=== PATIENT | male | born 1945 | race Caucasian/White ===

== ENCOUNTER 2017-02-10 09:50 | Inpatient (IN) | payer MEDICARE, OTHER ==
--- NOTE | 2017-02-10 12:49 | HP ---
HISTORY OF PRESENT ILLNESS: This 71-year-old, white male was admitted as a direct admit from Dr. Magallanes's office. 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 Yesterday, he noted onset of significant left lower extremity edema, swelling, and tenderness, especially upon weight-bearing. He was working on the seat of an excavator about 10 days ago and had tingling in the toes of his left foot at that time. No previous history of swollen extremities in the past. No shortness of breath, chest pain, no hemoptysis, no GI bleeding. No specific injuries to his extremities have been noted. In the outpatient department, Dr. Magallanes did a DVT ultrasound exam which showed a massive, extensive clot formation within the left lower extremity throughout most of the venous system of the leg. He is admitted to the hospital for heparinization with a heparin infusion per suggestion and recommendation of Dr. Conde, chiller hand. Eventually, he will go on Eliquis after the heparin infusion has been completed after 2 to 3 days. PAST MEDICAL HISTORY: 1. Hypertension. PAST SURGICAL HISTORY: 1. Appendectomy at age 9 years. CURRENT MEDICATIONS: Please refer to list of verified home medicines. ALLERGIES: NONE. FAMILY HISTORY: Father with renal failure in his 60s related to poorly controlled hypertension. SOCIAL HISTORY: He has worked in the [employer] for many years. He does not smoke. REVIEW OF SYSTEMS: GENERAL: No significant weight change, fever or chills. HEENT: No hearing or visual disturbances. LUNGS: No significant shortness of breath or cough. No hemoptysis. CARDIOVASCULAR: No significant palpitations or chest pains. GASTROINTESTINAL: No nausea or vomiting. No diarrhea or blood in the stools. GENITOURINARY: No dysuria or burning on urination. EXTREMITIES: History of sciatica on the left especially and now with swelling on the left lower extremity. NEUROLOGIC: No significant headaches or focal weakness. PHYSICAL EXAMINATION: VITAL SIGNS: Afebrile. Blood pressure 126/76. Pulse oximetry 95% on room air. Weight 97.8 kg. GENERAL: The patient is awake, alert and oriented and full communicative. No acute distress, but a tightness and achiness throughout the left lower extremity when weight-bearing. HEENT: Within normal limits. LUNGS: Clear. CARDIOVASCULAR: Heart tones are regular. ABDOMEN: Distended with lower abdominal fullness versus mass. Possible bladder distension. EXTREMITIES: Significant edema, quite firm in palpation with mild discomfort and slightly increased temperature on the left lower extremity compared to the right. Peripheral pulses are present. NEUROLOGIC: No focal neurological deficits are noted. Negative Homans test evident on exam. LABORATORY: Pending. RADIOLOGY: Ultrasound of the lower extremity on the left did reveal an extensive deep venous thrombus in the venous system. ASSESSMENT: 1. Acute extensive widespread deep venous thrombosis, left lower extremity, symptomatic. 2. Chronic sciatica, especially left lower extremity. 3. History of hypertension. 4. Abdominal mass PLAN: The patient is admitted to the hospital for initiation of heparin bolus followed by heparin infusion and after the completion of the heparin for at least 2 to 3 days, then continuation as an outpatient on Eliquis per protocol. He will be followed closely for his partial thromboplastin time and heparin dose to be adjusted accordingly. He will have close followup with Dr. Magallanes in the clinic and with Dr. Conde in the cardiology clinic. Await CT Abdominal exam. #[id number] [facility]
[2017-02-10] MEDS ORDERED: HEPARIN SODIUM (PORCINE) 5,000 U/ML VIAL IV ONE (13:41)
[2017-02-10] MEDS ORDERED: HEPARIN IV SCH (13:45)
[2017-02-10] MEDS ORDERED: SODIUM CHLORIDE 0.9% (FLUSH) 10 ML SYG IV PRN (14:05)
[2017-02-10] MEDS ORDERED: HYDROcodone 5MG/APAP 325MG 1 EA TAB PO PRN (14:05)
[2017-02-10] MEDS ORDERED: ONDANSETRON INJ 4 MG/2 ML VIAL IV PRN (14:05)
[2017-02-10] MEDS ORDERED: MAGNESIUM HYDROXIDE 30 ML UD PO PRN (14:05)
--- NOTE | 2017-02-10 14:26 | US ---
EXAM DESCRIPTION: Venous,Lower Extremity LT CLINICAL HISTORY: PAIN IN LEFT LEG COMPARISON: None Available. TECHNIQUE: Left lower extremity venous grayscale, spectral, and color Doppler sonographic images. FINDINGS: There is extensive mostly occlusive deep venous thrombosis extending from the common femoral into the superficial femoral vein. Partially occluding thrombosis of the distal superficial femoral and popliteal veins. Thrombus extends into the greater saphenous and peroneal veins. No evidence of thrombus in the posterior tibial vein. IMPRESSION: Extensive deep venous thrombosis in the left lower extremity venous system as described above. The findings were called to Dr. Monico Magallanes on 02/10/2017 at 1210 hours. Electronically signed by: Nash Fermin MD 02/10/2017 2:26 PM CDT
[2017-02-10] MEDS ORDERED: IV SET AND CAP CHANGE INJ INJ SCH (14:30)
--- NOTE | 2017-02-10 14:30 | RAD ---
EXAM DESCRIPTION: Chest,1 View CLINICAL HISTORY: 71 years, Male, DVT left leg COMPARISON: None. FINDINGS: Slightly shallow inspiration. Mild elevation right hemidiaphragm. No consolidation. Cardiac silhouette borderline. Old right clavicular fracture. IMPRESSION: Mild chronic lung change with borderline heart size Electronically signed by: Flex Alcazar MD 02/10/2017 2:30 PM CDT
[2017-02-10] MEDS: KCL 20 MEQ/NS 1,000 ML IVS PRN (14:33)
--- NOTE | 2017-02-10 15:09 | CT ---
EXAM DESCRIPTION: Abdoment/Pelvis w/o Contrast CLINICAL HISTORY: extensive DVT left LE COMPARISON: None. TECHNIQUE: Noncontrast transaxial CT images of the abdomen and pelvis are obtained. This exam was performed according to our departmental dose-optimization program, which includes automated exposure control, adjustment of the mA and/or kV according to patient size and/or use of iterative reconstruction technique . FINDINGS: Visualized lung bases show no acute findings. Probable chronic pleural thickening or scarring in the lung base is seen associated with remote healed rib fractures. The heart is mildly enlarged. Trace pericardial effusion is seen. Given the limitations of a noncontrast exam the liver, spleen, pancreas, glands, and mildly contracted gallbladder are seen. Dominant vasculature is unremarkable. There is severe distention of the urinary bladder measuring 17.7 x 15.0 x 23.3 cm. There are areas of trabeculations involving the dome of the urinary bladder as well as small diverticuli. Prostate is mildly enlarged measuring 4.1 x 4.9 cm partly extending into the floor the urinary bladder. Moderate right and mild left hydronephrosis is seen. AP diameter of the renal pelvis measures 3.9 cm on the right and 2.3 cm on the left. No significant nephrolithiasis. No ureteral calcification. Ureters appear obstructed secondary to bladder distention compressing the ureters. There is compression of the common iliac vein from the right common iliac artery and pressure from the urinary bladder. No pathologic lymphadenopathy seen. Appendix is unremarkable. No small bowel obstruction is seen. No significant colon diverticulosis. Osseous structures show no aggressive bony lesions. Severe disc space narrowing and vacuum disc phenomenon from L2 through S1 is seen with multilevel facet arthropathy contributing to multilevel spinal canal stenosis and foraminal encroachment from L2 through S1. Bony hypertrophy and degenerative changes of the SI joints are seen. IMPRESSION: Severe distention of the urinary bladder. This is likely chronic given the bladder trabeculations and diverticula. This could be secondary to chronic bladder outlet obstruction and enlarged prostate versus neurogenic bladder. Moderate right and mild left hydronephrosis appears secondary to compression of the mid to distal ureters by the distended urinary bladder. The distended urinary bladder could also result in compression of the left common iliac vein and be the etiology for left lower extremity DVT. Severe spondylitic changes and facet arthropathy of the lumbar spine as described above. Electronically signed by: Nikolas Sanches MD 02/10/2017 3:08 PM CDT
[2017-02-10] MEDS ORDERED: HEPARIN IV PRN (16:30)
--- NOTE | 2017-02-10 16:59 | US ---
EXAM DESCRIPTION: Venous Doppler sonogram right lower extremity CLINICAL HISTORY: Extensive deep vein thrombosis left lower extremity previously seen. Right lower extremity pain and swelling COMPARISON: Previous sonogram from 02/10/2017 left lower extremity TECHNIQUE: Venous Doppler right lower extremity deep venous system from the common femoral vein to the calf veins FINDINGS: Normal venous flow with color Doppler. Normal compressibility. Normal augmentation of flow with compression maneuvers IMPRESSION: No deep vein thrombosis right lower extremity Electronically signed by: Martin Edmond MD 02/10/2017 4:46 PM CDT
[2017-02-10] MEDS ORDERED: ENOXAPARIN SODIUM 100 MG/ML SYG SUBCU ONE (17:06)
[2017-02-10] MEDS: ENOXAPARIN SODIUM 100 MG/ML SYG SUBCU SCH (17:19)
--- NOTE | 2017-02-10 18:58 | PN ---
DATE: 02/10/17 SUBJECTIVE: The patient will be switched from heparin infusion to Lovenox to assist with the further resolution of a significant iliofemoral DVT, left lower extremity. We are unable to adequately provide PTT determinations to assist with the ongoing tapering of the heparin infusion. Condition is discussed with Dr. Conde who is in full agreement and we will continue. Of importance is that he is on Lovenox 100 mg subcutaneously q.12h. On the last dose on the Lovenox on the day prior to discharge in the evening, the first dose of Eliquis is to be given, then on the morning of discharge, the Eliquis by itself can be administered and continued on a twice daily dosage schedule per protocol. OBJECTIVE: The patient has had problems with bladder outlet in the past for which she takes medications to help relax the sphincter. CT scan of the abdomen shows an extremely enlarged bladder. At this time, he has passed about 250 mL of urine and a Glaser catheter will be passed so that residual bladder volume can be determined. The patient does have some bilateral hydronephrosis and hydroureter also suggesting some sequelae and complications of the bladder outlet obstruction. Whether or not the markedly distended and heavy bladder full of urine is compressing upon one of the veins and whether it may be contributing to the DVT by compression on the left common iliac vein must be considered. PLAN: Glaser catheter to decompress the bladder. Hope to be able to have followup with Dr. Mcmahon, urologist, tomorrow in the [facility]. We will continue with the heparin for at least 2 to 3 days, followed by the [facility] on an outpatient basis and close followup with Dr. Magallanes necessary. Special attention at this time to the significant bladder outlet obstruction to continue. #[id number] [facility]
[2017-02-10] MEDS ORDERED: OMEPRAZOLE CAP 20 MG CAP ONE (20:35)
[2017-02-11] MEDS: ENOXAPARIN SODIUM 100 MG/ML SYG SUBCU SCH ×2 (05:06→17:00)
[2017-02-11] MEDS: OMEPRAZOLE CAP 20 MG CAP PO SCH (06:04)
--- NOTE | 2017-02-11 08:06 | PN ---
DATE: 02/10/17 OBJECTIVE: Catheterization was inserted without difficulty into the bladder. Post void, over 3,000 mL of urine removed in stages. Well tolerated with the patient feeling much improved upon completion of the bladder drainage. Close followup necessary now with Dr. Mcmahon, urologist, to assist with further delineation and treatment of a significant bladder outlet obstruction. #[id number] [facility]
[2017-02-11] MEDS ORDERED: ATENOLOL PO SCH (14:45)
[2017-02-11] MEDS ORDERED: CHLORTHALIDONE PO SCH (14:45)
[2017-02-11] MEDS ORDERED: [UNRECOGNIZED DRUG - OTHER] PO SCH (14:45)
[2017-02-11] MEDS ORDERED: TERAZOSIN 5 MG CAP PO ONE (14:57)
[2017-02-11] MEDS: CHLORTHALIDONE 25 MG TAB PO SCH (15:12)
[2017-02-11] MEDS: TERAZOSIN 5 MG CAP PO SCH (15:12)
[2017-02-11] MEDS: KCL 20 MEQ/NS 1,000 ML IVS PRN (15:13)
[2017-02-11] MEDS ORDERED: ATENOLOL 25 MG TAB PO ONE (15:13)
[2017-02-11] MEDS: ATENOLOL 25 MG TAB PO SCH (15:13)
[2017-02-11] MEDS ORDERED: CHLORTHALIDONE 25 MG TAB PO ONE (15:13)
--- NOTE | 2017-02-11 16:30 | CONS ---
HISTORY OF PRESENT ILLNESS: Mr. Weller is a 71 year-old white male admitted to the hospital with a left DVT. He has had left leg swelling and is now on anticoagulation. He had complained of abdominal fullness and difficulty urinating for some time. A CT scan of the abdomen and pelvis was obtained suggesting bilateral hydroureter nephrosis with a markedly distended bladder above his umbilicus. He subsequently has had a Glaser catheter placed and is now draining clear urine. The patient gives a long history of some mild obstructive voiding symptoms going back into his early 20s. He has been on Terazosin for some time. He had noticed that his abdominal girth was getting larger over the last many weeks but had really noted a big change in his urine flow. Once again, what brought him to the hospital was the left leg swelling. The patient has had a history of some back problems. Apparently ;he has sciatica , has had his back scanned before. He does have some occasional right lower extremity pain and numbness. REVIEW OF CHART NOTES ALONG WITH LABORATORY STUDIES: The patient's creatinine is in the normal range at 1.17 with a BUN of 20. IMPRESSION: 1. 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 2. Chronic history of slowing his urine stream. 3. Left lower extremity DVT. RECOMMENDATIONS: For now, I suggest we continue him on Glaser catheter drainage. Obviously because of his DVT, we will need to continue his anticoagulation. As soon as he is released from his hospitalization though, I would like to see him in my office in [place] for a cystoscopy to further evaluate his lower urinary tract. Thanks for allowing me to participate in his care. #[id number] [facility]
[2017-02-11] MEDS ORDERED: SIMVASTATIN 10 MG TAB PO ONE (19:57)
[2017-02-11] MEDS: SIMVASTATIN 10 MG TAB PO SCH (20:25)
--- NOTE | 2017-02-11 21:09 | PN ---
DATE: 02/11/17 SUPERVISING PHYSICIAN: Benja Atkinson M.D. SUBJECTIVE: The patient is sitting up in his hospital bed. He is visiting with family and eating his lunch. He has no complaints of shortness of breath, nausea, vomiting or back pain. He does complain of some slight pain to that left leg but it is not nearly as bad as it was before the catheter was placed. OBJECTIVE: VITAL SIGNS: He is afebrile, heart rate 71, blood pressure 154/80, respiratory rate 20, O2 sat is 95% on room air. RESPIRATORY: Clear to auscultation bilaterally. CARDIAC: Regular rate and rhythm. ABDOMEN: Soft, nondistended, nontender. Bowel sounds are positive. NEUROLOGIC: He is awake, alert and oriented times three. EXTREMITIES: His left leg still continues to be quite edematous, but the patient states it is smaller than yesterday. His bilateral pedal pulses are present at +1. LABORATORY: His CBC is basically within normal limits. Chemistries are basically within normal limits with the exception of his anion gap is 9.6, BUN 20, calcium 8.3. All other labs and films have been reviewed via the EMR. ASSESSMENT: 1. Acute extensive, wide-spread deep vein thrombosis of the left lower extremity. 2. Chronic sciatica, especially to the left lower extremity that has improved. 3. 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 4. Hypertension. 5. History of urinary retention. PLAN: We will continue present supportive care. Dr. Mcmahon saw the patient today and recommended that the Glaser catheter be left in place until he can scope him next week. He asked that Dr. Magallanes's office call his office to set up an appointment for the patient next Thursday and I have called Dr. Magallanse' s office, and his nurse, Cassidy, has said that she will make the appointment for him. He will have his fourth dose of Lovenox in the morning. We will discontinue the Lovenox after his fourth dose and start him on Eliquis 5 mg b.i.d. at the time of his last dose of Lovenox. Hopefully he will be able to be discharge tomorrow or the next day with close followup with Dr. Magallanes as well as Dr. Mcmahon. Dr. Magallanes has also said that he will have him referred to Dr. Conde at some point. Otherwise we will continue to monitor the patient closely and followup as needed. #[id number] [facility]
[2017-02-12] MEDS: ENOXAPARIN SODIUM 100 MG/ML SYG SUBCU SCH (04:47)
[2017-02-12] MEDS: OMEPRAZOLE CAP 20 MG CAP PO SCH (06:35)
[2017-02-12] MEDS: APIXABAN 2.5 MG TAB PO SCH ×3 (06:35→21:26)
[2017-02-12] MEDS: POTASSIUM CHLORIDE 20 MEQ TAB PO SCH (07:47)
[2017-02-12] MEDS ORDERED: NON-FORMULARY MEDICATION 1 EA MIS (Lovastatin [Lovastatin] 20 MG) PO SCH (09:00)
[2017-02-12] MEDS: CHLORTHALIDONE 25 MG TAB PO SCH (09:16)
[2017-02-12] MEDS: ATENOLOL 25 MG TAB PO SCH (09:16)
[2017-02-12] MEDS: TERAZOSIN 5 MG CAP PO SCH (09:16)
[2017-02-12] MEDS: SODIUM CHLORIDE 0.9% (FLUSH) 10 ML SYG IV SCH ×2 (09:17→21:26)
[2017-02-12] MEDS ORDERED: POTASSIUM CHLORIDE 20 MEQ TAB PO ONE (09:27)
--- NOTE | 2017-02-12 20:55 | PN ---
DATE: 02/12/17 SUPERVISING PHYSICIAN: Benja Atkinson M.D. SUBJECTIVE: The patient is lying in his hospital bed. He is getting ready to take a shower. He denies any shortness of breath, nausea or vomiting, chest pain, diarrhea or constipation. He also feels like the pain in his leg as well as his lower back are much improved and he feels much better overall. OBJECTIVE: VITAL SIGNS: Temperature 98.4, pulse rate 76, blood pressure 136/73 , respiratory rate 20, O2 sat is 97%. RESPIRATORY: Clear to auscultation bilaterally. CARDIAC: Regular rate and rhythm. ABDOMEN: Soft, nondistended, non-tender. Bowel sounds are positive. EXTREMITIES: The left leg is edematous from the groin down to the foot, but it is much improved since yesterday. His pedal pulses are palpable bilaterally at +1. NEUROLOGIC: He is awake, alert and oriented times three. LABORATORY: CBC is basically within normal limits. Metabolic panel shows sodium 138, potassium 3.3, chloride 105, carbon dioxide 28, BUN 16, creatinine 1.13, glucose 101, calcium 8.1. All other labs and films have been reviewed via the EMR. ASSESSMENT: 1. Acute extensive wide-spread deep venous thrombosis of the left lower extremity presently on Eliquis. 2. Chronic sciatica, especially to the left lower extremity that has improved. 3. 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 4. Mild hypokalemia. His potassium supplements have been restarted. 5. Hypertension. 6. History of urinary retention. PLAN: We will continue present supportive care. His last dose of Lovenox was this morning and his Eliquis was started. He is getting up and will be moving around as much as possible over the next 24 hours. His potassium was restarted and I will do a BMP in the morning. He will continue on the Eliquis and if he continues to improve overnight, he will be discharged in the morning with close followup with Dr. Magallanes on Thursday and Dr. Mcmahon on Thursday of next week. At this point, we will continue to monitor the patient closely and followup as needed. Dr. Atkinson is the collaborating physician available for consultation. #[id number] [facility]
[2017-02-12] MEDS: SIMVASTATIN 10 MG TAB PO SCH (21:26)
[2017-02-13] MEDS: OMEPRAZOLE CAP 20 MG CAP PO SCH (06:19)
[2017-02-13] MEDS: POTASSIUM CHLORIDE 20 MEQ TAB PO SCH (07:45)
[2017-02-13] MEDS: APIXABAN 2.5 MG TAB PO SCH (09:12)
[2017-02-13] MEDS: ATENOLOL 25 MG TAB PO SCH (09:12)
[2017-02-13] MEDS: CHLORTHALIDONE 25 MG TAB PO SCH (09:12)
[2017-02-13] MEDS: SODIUM CHLORIDE 0.9% (FLUSH) 10 ML SYG IV SCH (09:13)
[2017-02-13] MEDS: TERAZOSIN 5 MG CAP PO SCH (09:15)
[2017-02-13] MEDS ORDERED: POTASSIUM CHLORIDE 20 MEQ TAB PO ONE (10:10)
[2017-02-13] MEDS ORDERED: MAGNESIUM HYDROXIDE 30 ML UD PO ONE (10:20)
[2017-02-13 11:13] VITALS: BP 115/76; TEMP 98.3; O2SAT 97
--- NOTE | 2017-02-13 13:33 | DS ---
SUPERVISING PHYSICIAN: Solange Zabala MD DISCHARGE DIAGNOSIS: 1. Acute extensive widespread deep venous thrombosis of the left lower extremity, presently on Eliquis. 2. 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 3. Chronic sciatica, especially to the left lower extremity, improved. 4. Mild hypokalemia. 5. Hypertension. 6. History of urinary retention. HISTORY OF PRESENT ILLNESS: This is a 71-year-old male patient who was seen in his primary care physician's office, Dr. Magallanes, for some left leg pain and swelling. 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 He has no previous history of deep venous thrombosis or swollen extremities in the past. He had no shortness of breath, chest pain, hemoptysis or GI bled. There were no injuries noted. He came to Dr. Magallanes's office. A DVT ultrasound was performed that showed a massive extensive clot formation from within the left lower extremity through most of the venous structures of the leg. He was admitted to the hospital for treatment of the clot. Dr. Magallanes called Dr. Conde who recommended that he be started on 2 days of Lovenox and then transitioned to Eliquis. It is also to be noted that he had a large abdominal mass that was evaluated. An abdominopelvic CT was done and per radiologic interpretation showed severe distention of the urinary bladder that was likely chronic given the bladder trabeculation and diverticula, could be secondary to chronic bladder outlet obstruction and large prostate versus neurogenic bladder. The distended urinary bladder could also result in compression of the left common iliac vein and may be the etiology for the left lower extremity deep venous thrombosis. A Glaser catheter was placed and there was about 3000 mL of urine returned. Dr. Mcmahon was consulted and after examination, he also felt that the urinary retention was due to the bilateral hydroureteronephrosis and he suggested that we leave his Glaser catheter in place and he could have a followup appointment next week after he was treated for his DVT. He was started on Eliquis yesterday. The swelling in his leg has decreased dramatically. He also has had minimal to no pain in that left leg. At this point, he can be discharged home on Eliquis. DISCHARGE PLAN: The patient will be discharged home. He will continue Eliquis 5 mg b.i.d. I have instructed the patient to watch for signs and symptoms of increased bleeding and to minimize his activity over the next couple of weeks until he talks to Dr. Magallanes, Dr. Mcmahon, and Dr. Conde. He also has some concerns about some mild constipation. I recommended that he use Milk of Magnesia. We gave him a dose here in the hospital and he is to continue for 2 more doses over the next 2 days. I also recommended that he be on Colace. He has an appointment with Dr. Magallanes on Thursday and he has an appointment with Dr. Mcmahon on Thursday. He is to call Dr. Magallanes's office or return to the hospital for any complications. Dr. Magallanes will have followup with Dr. Conde at some point. He will be discharged home in stable condition. He is to resume his previous diet. He is to remain active, but nothing strenuous over the next 2 weeks until cleared by his physicians. DISCHARGE MEDICATIONS: 1. Hytrin. 2. Potassium chloride. 3. Lovastatin. 4. Atenolol chlorthalidone. 5. Eliquis. 6. Colace. Dr. Zabala is the collaborating physician and available for consultation. #[id number] [facility]
== END 2017-02-13 12:00 | disposition home or self-care (01) | DRG 300 ==
LOC: GMAH 09:50 → MS 12:30
PROVIDERS: ADMIT Emergency Medicine; ATTEND Emergency Medicine
DX: I82.412 Acute embolism and thrombosis of left femoral vein (principal); N13.30 Unspecified hydronephrosis; M54.32 Sciatica, left side; E87.6 Hypokalemia; R33.9 Retention of urine, unspecified; N32.0 Bladder-neck obstruction; I10 Essential (primary) hypertension; Z79.899 Other long term (current) drug therapy

== ENCOUNTER 2017-02-25 11:00 | Inpatient (IN) | payer MEDICARE, OTHER ==
--- NOTE | 2017-02-25 11:29 | HP ---
SUPERVISING PHYSICIAN: Martin Zabala MD CHIEF COMPLAINT: Fever HISTORY OF PRESENT ILLNESS: This is a 71-year-old male patient who presented to his primary care physician's office, Dr. Magallanes, today due to fever and chills. The patient had been in the hospital around 02/10/17 due to an acute, extensive, widespread deep venous thrombosis of the left lower extremity, most likely due to a marked urinary retention because of bilateral hydroureter nephrosis. He was in the hospital for several days, placed on Eliquis, and discharged home with an indwelling Glaser catheter. He has seen Dr. Paul Mcmahon, urologist in [place], and a week ago, he was in Dr. Mcmahon's office, the catheter was removed and the patient had to do self-catheterization. He was unable to get disposable catheters before he ran out, so he was re-using each catheter approximately 4 times daily. He then went to see Dr. Mcmahon yesterday to see if he was able to void on his own and he was unable to do so, so Dr. Mcmahon had him continue his self-catheterization. Last night, he started having chills and fever. His temperature got up to 102.3. He also had severe chills. He went to see Dr. Magallanes this morning. Dr. Magallanes did a lab workup on him and his WBCs were 29.5, potassium 3, chloride 99, BUN 18, creatinine 1.42, and a significant urinary tract infection with 100 urine protein, moderate urine blood, positive urine nitrites, trace leukocyte esterase, 20 to 30 urine RBCs, greater than 50 urine WBCs and 4+ urine bacteria. I was called for admission to the hospital. PAST MEDICAL HISTORY: 1. Hypertension. 2. Urinary retention. PAST SURGICAL HISTORY: 1. Appendectomy at age 9. CURRENT MEDICATIONS: Per the EMR and awaiting verification. ALLERGIES: NO KNOWN DRUG ALLERGIES. SOCIAL HISTORY: He is . 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 He denies any tobacco, ETOH, or illicit drug use. REVIEW OF SYSTEMS: GENERAL: Positive for fever and chills. Denies any weight changes. HEENT: Denies sinus symptoms, ear pain, vision changes or sore throat. RESPIRATORY: Denies wheezing, coughing or shortness of breath. CARDIAC: Denies chest pain, palpitations or tachycardia. GASTROINTESTINAL: Denies nausea, vomiting, diarrhea, constipation. GENITOURINARY: As per the history of present illness. NEUROLOGIC: Denies headache, weakness, or seizures. PHYSICAL EXAMINATION: VITAL SIGNS: Temperature 99.3. Heart rate 79. Blood pressure 118/58. Respiratory rate 16. O2 saturation 97% on room air. GENERAL: This is a 71-year-old, male patient who is lying in his hospital bed. He is in no acute distress. HEENT: Normocephalic, atraumatic. Pupils are equal and reactive. RESPIRATORY: Clear to auscultation bilaterally. CHEST: There is equal rise and fall of the chest with inspiration and expiration. CARDIOVASCULAR: Regular rate and rhythm. ABDOMEN: Soft, nondistended, nontender. Bowel sounds are positive. There is a urinary catheter in place. EXTREMITIES: No cyanosis, clubbing or edema. Pedal pulses are palpable at +2. NEUROLOGIC: Awake, alert and oriented times three. LABORATORY: Labs are as per the history of present illness. ASSESSMENT: 1. Pyelonephritis, most likely due to re-use of catheters due to self- catheterization. 2. Recent history of acute, extensive, widespread deep venous thrombosis of the left lower extremity. 3. History of hypertension. 4. Urinary retention. PLAN: We will admit the patient to the hospital. I will do blood cultures and urine cultures. I will repeat his lab in the morning. I placed him on Levaquin and we will continue with that until his cultures and sensitivities are resulted. I strongly encouraged him to get disposable catheters. He will followup with Dr. Mcmahon after discharge from the hospital. Otherwise, we will continue to monitor the patient closely and followup as needed. Dr. Zabala is the collaborating physician and available for consultation. #[id number] [facility]
[2017-02-25] MEDS ORDERED: SODIUM CHLORIDE 0.9% (FLUSH) 10 ML SYG IV PRN (12:59)
[2017-02-25] MEDS ORDERED: IV SET AND CAP CHANGE INJ INJ SCH (13:00)
[2017-02-25] MEDS ORDERED: ACETAMINOPHEN 325 MG TAB PO PRN (13:02)
[2017-02-25] MEDS ORDERED: levoFLOXacin 500MG IV 100 ML IVPB ONE (13:52)
[2017-02-25] MEDS: levoFLOXacin 500MG IV 500 MG in PREMIX BAG 1 BAG IVPB SCH (14:06)
[2017-02-25] MEDS: PANTOPRAZOLE SODIUM IV 40 MG VIAL IV SCH (14:06)
[2017-02-25] MEDS ORDERED: SODIUM CHLORIDE 0.9% 1000ML 1,000 ML IVS PRN (20:53)
[2017-02-25] MEDS ORDERED: POTASSIUM CHLORIDE 20 MEQ TAB PO ONE (20:56)
[2017-02-25] MEDS ORDERED: APIXABAN 2.5 MG TAB PO ONE (21:00)
[2017-02-25] MEDS: chlorproMAZINE HCL 25 MG TAB PO PRN (21:39)
[2017-02-26] MEDS: KCL 20 MEQ/NS 1,000 ML IVS PRN ×3 (02:37→23:08)
[2017-02-26] MEDS: chlorproMAZINE HCL 25 MG TAB PO PRN ×2 (06:20→14:10)
[2017-02-26] MEDS ORDERED: [UNRECOGNIZED DRUG - OTHER] PO SCH (12:00)
[2017-02-26] MEDS ORDERED: ATENOLOL PO SCH (12:00)
[2017-02-26] MEDS ORDERED: CHLORTHALIDONE PO SCH (12:00)
[2017-02-26] MEDS ORDERED: levoFLOXacin 500MG IV 100 ML IVPB ONE (12:06)
--- NOTE | 2017-02-26 12:10 | PCM.CORE ---
Physician DVT/VTE - Prophylaxis Currently: Patient already on anticoagulation therapy - Nurse DVT Assessment & Total Each Risk Factor Represents 3 Points: Hx of DVT/PE, Medical PT with Hx of [place], CHF, Severe infection/sepsis Each Risk Factor Represents 2 Points: Age 60-74 Each Risk Factor Represents 1 Point: Medical PT at Bed Rest DVT Assessment Score: 9 - 5 or more Very High Risk Treatments: Early Ambulation *, Sequential Compression Device
[2017-02-26] MEDS: APIXABAN 2.5 MG TAB PO SCH ×2 (12:19→20:56)
[2017-02-26] MEDS: DOCUSATE SODIUM 100 MG CAP PO SCH ×2 (12:19→20:56)
[2017-02-26] MEDS: PANTOPRAZOLE SODIUM IV 40 MG VIAL IV SCH (13:23)
[2017-02-26] MEDS: levoFLOXacin 500MG IV 500 MG in PREMIX BAG 1 BAG IVPB SCH (14:06)
[2017-02-26] MEDS ORDERED: chlorproMAZINE HCL 25 MG TAB PO ONE (16:57)
[2017-02-26] MEDS: chlorproMAZINE HCL 25 MG TAB PO SCH (17:24)
[2017-02-26] MEDS: PROMETHAZINE W/CODEINE SYR 5 ML UD PO PRN (17:24)
[2017-02-26] MEDS ORDERED: NON-FORMULARY MEDICATION 1 EA MIS (Lovastatin [Lovastatin] 20 MG) PO SCH (21:00)
[2017-02-26] MEDS ORDERED: PRAVASTATIN SODIUM 20 MG TAB PO SCH (21:00)
[2017-02-27] MEDS: chlorproMAZINE HCL 25 MG TAB PO SCH ×3 (00:15→12:34)
[2017-02-27] MEDS: PROMETHAZINE W/CODEINE SYR 5 ML UD PO PRN ×3 (00:32→13:34)
[2017-02-27] MEDS: KCL 20 MEQ/NS 1,000 ML IVS PRN (07:57)
--- NOTE | 2017-02-27 08:36 | PN ---
SUPERVISING PHYSICIAN: Benja Atkinson MD DATE: 02/26/17 SUBJECTIVE: The patient is sitting up in his hospital bed. He is in no acute distress. States he feel much better than he did yesterday. He denies any shortness of breath, chest pain, nausea, vomiting, diarrhea. OBJECTIVE: VITAL SIGNS: T-max 24 hours is 99.8. Pulse rate 70, blood pressure 121/65, respiratory rate 16, 02 saturation 94%. RESPIRATORY: Clear to auscultation bilaterally. CARDIAC: Regular rate and rhythm. ABDOMEN: Soft, non-tender, nondistended, bowel sounds are positive. There is a Glaser catheter in place. NEUROLOGICAL: He is awake, alert, and oriented x3. LABORATORY: WBCs have improved to 23.6. Hemoglobin 13, hematocrit 38.8. Neutrophils 86.6%. Sodium 136, potassium 3.1, chloride 102, carbon dioxide 27, BUN 20, creatinine 1.30. His preliminary urine culture shows gram negative rods. His preliminary blood cultures show no growth at 24 hours. All other labs and films have been reviewed via the EMR. ASSESSMENT: 1. Pyelonephritis, most likely due to re-use of catheters due to self- catheterization. 2. Recent history of acute extensive, widespread deep venous thrombosis of the left lower extremity. 3. History of hypertension. 4. Urinary retention. 5. Hiccups. PLAN: We will continue present supportive care. We will continue to monitor his cultures. He will continue on Levaquin. He is also to followup with Dr. Mcmahon for removal of the catheter at some point and I have also written him a prescription for disposable catheters so his can be in the process of getting those, they will be one use only. I have given him scheduled Thorazine for his hiccups. We will need to reevaluate tomorrow and maybe we can discontinue that. We have also given him some cough syrup with codeine to help with his cough. Repeat his labs in the morning and will continue to monitor the patient closely and followup as needed. #[id number] [facility]
[2017-02-27] MEDS ORDERED: ATENOLOL 25 MG TAB PO SCH (09:00)
[2017-02-27] MEDS ORDERED: POTASSIUM CHLORIDE 20 MEQ TAB PO SCH (09:00)
[2017-02-27] MEDS ORDERED: CHLORTHALIDONE 25 MG TAB PO SCH (09:00)
[2017-02-27] MEDS ORDERED: PANTOPRAZOLE SODIUM TAB 40 MG PO ONE (09:12)
[2017-02-27] MEDS ORDERED: POTASSIUM CHLORIDE 20 MEQ TAB PO ONE (09:20)
[2017-02-27] MEDS: APIXABAN 2.5 MG TAB PO SCH (09:38)
[2017-02-27] MEDS: DOCUSATE SODIUM 100 MG CAP PO SCH (09:38)
[2017-02-27] MEDS ORDERED: PANTOPRAZOLE SODIUM TAB 40 MG PO SCH (11:30)
[2017-02-27] MEDS ORDERED: levoFLOXacin 500MG IV 100 ML IVPB ONE (13:31)
[2017-02-27] MEDS: levoFLOXacin 500MG IV 500 MG in PREMIX BAG 1 BAG IVPB SCH (13:34)
[2017-02-27 16:56] VITALS: BP 116/70; TEMP 98.1
[2017-02-27 17:00] VITALS: O2SAT 97
[2017-02-27] MEDS ORDERED: SODIUM CHLORIDE 0.9% (FLUSH) 10 ML SYG IV SCH (21:00)
[2017-02-27] MEDS ORDERED: BIFIDOBACTERIUM INFANTIS 4 MG CAP PO SCH (21:00)
--- NOTE | 2017-02-28 14:00 | DS ---
SUPERVISING PHYSICIAN: Benja Atkinson M.D. DISCHARGE DIAGNOSIS: 1. Pyelonephritis most likely due to reuse of catheter due to self catheterization. Urine culture shows Escherichia coli with sensitivities to Levaquin. 2. Recent history of acute extensive wide spread deep venous thrombosis of the left lower extremity. 3. History of hypertension. 4. Urinary retention. 5. Hiccups. HISTORY OF PRESENT ILLNESS: This is a 71 year-old male patient who presented to his primary care physician, Dr. Magallanes's office due to fevers and chills. The patient had been in the hospital around 02/10/17 due to an acute extensive wide spread DVT of his left lower extremity. It was most likely caused due to marked urinary retention because of bilateral hydroureteronephrosis. He was in the hospital for several days and placed on Eliquis, and discharged home with an indwelling catheter. Dr. Paul Mcmahon is his urologist. After taking out his Glaser catheter several weeks ago, he was to use straight catheterization and because he was unable to obtain any disposable straight caths, he reused the catheter. When Dr. Magallanes saw him he had very cloudy, foul-smelling urine with WBCs of 29.5 and potassium 3, a significant urinary tract infection and he was directly admitted to the hospital. HOSPITAL COURSE: The patient responded well to his IV antibiotics of Levaquin. His urine was cultured and grew out Escherichia coli that was sensitive to Levaquin. During his hospital stay, he developed hiccups that was complicated usually by his cough. Thorazine was started for him as well as some Promethazine with codeine cough medicine and that did help his hiccups and coughing, but he still occasionally had some problems with his hiccups. The patient's vital signs have been stable. His WBCs were 14.9 this morning and he can be discharged home. DISCHARGE PLAN: The patient will be discharged home in stable condition. He is to do 14 total days of Levaquin. I have given him prescriptions for disposable catheters for his eventual self catheterization and he has been instructed to not reuse those catheters, and to use good hygiene. He will be discharged with a Glaser catheter and he has an appointment with Dr. Mcmahon next week for removal of the indwelling catheter. I have also given him some Thorazine for the hiccups as well as some codeine cough syrup. He also has a followup with Dr. Magallanes next week. He is to resume his previous diet as well as his previous physical activity. He is to return to the hospital or to Dr. Magallanes's office for any further complications. DISCHARGE MEDICATIONS: 1. Potassium chloride. 2. Lovastatin. 3. Atenolol. 4. Chlorthalidone. 5. Eliquis. 6. Colace. 7. Align. 8. Promethazine with codeine cough syrup. 9. Levaquin. 10. Thorazine. Dr. Atkinson is the collaborating physician available for consultation. #[id number] [facility]
== END 2017-02-27 16:35 | disposition home or self-care (01) | DRG 699 ==
LOC: MS 11:00
PROVIDERS: ADMIT Family Medicine; ATTEND Nurse Practitioner Acute Care
DX: T83.518A Infection and inflammatory reaction due to other urinary catheter, initial encounter (principal); N12 Tubulo-interstitial nephritis, not specified as acute or chronic; I10 Essential (primary) hypertension; R33.9 Retention of urine, unspecified; B96.20 Unspecified Escherichia coli [E. coli] as the cause of diseases classified elsewhere; R06.6 Hiccough; Z86.718 Personal history of other venous thrombosis and embolism; Y84.6 Urinary catheterization as the cause of abnormal reaction of the patient, or of later complication, without mention of misadventure at the time of the procedure; Y92.009 Unspecified place in unspecified non-institutional (private) residence as the place of occurrence of the external cause

== ENCOUNTER → 2017-05-29 | Outpatient (CLI) | payer MEDICARE, OTHER ==
--- NOTE | 2017-05-29 16:59 | US ---
EXAM DESCRIPTION: Thyroid CLINICAL HISTORY: THYROID NODULE COMPARISON: None. TECHNIQUE: Transcutaneous scannin-dimensional and Doppler modes. FINDINGS: Right lobe dimensions are 0.5 x 1.9 x 1.7 cm. Heterogeneous echoes. Complex nodule in the mid pole measuring 13 x 10 x 7 mm. Second nodule slightly echogenic and solid measures 9 x 7 x 6 mm. Neither nodule is vascular. Normal vascularity in the remainder of the lobe. No microcalcifications. Contour right lobe smooth. Juxta-thyroid masses/fluid: none. Left lobe dimensions 4 x 2.2 x 1.6 cm. cm. Heterogeneous echoes. Complex nodule measuring 10 x 10 x 9 mm in the upper pole. Another complex nodule measuring 11 x 9 x 10 mm in the lower pole. Neither nodule is vascular. Normal vascularity in the remainder of the lobe. No microcalcifications. Contour left lobe smooth. Juxta-thyroid masses/fluid: none. Isthmus thickness 3.2 mm. Heterogeneous echoes. No cystic, no solid, and no complex lesions. Vascularity Contour smooth. IMPRESSION: 1. Bilateral thyroid nodules. These nodules do not meet the imaging criteria for Fine needle aspiration sampling according to RP best practice guidelines, adopted from ACR white paper and Hernandez 3-tiered guidelines on incidental thyroid nodules. Please see below.* These recommendations do not apply to patients with increased risk for thyroid cancer or patients with symptomatic thyroid disease. 2. No discrete solid masses, cystic masses, or edema in the surrounding soft tissues. *Further evaluation by thyroid US recommended for: -Solitary incidental thyroid nodule (ITN) with high risk imaging features (locally invasive nodule or suspicious lymph nodes) -Solitary ITN of any size in pediatric patients <= 18 years of age -Solitary ITN >= 1 cm in axial plane in patients between 18 and 35 years of age -Solitary ITN >= 1.5 cm in axial plane in patients >= 35 years of age -Heterogeneous enlarged thyroid gland -ITN avid on FDG-PET or other nuclear medicine (MIBI and octreotide) scans. FNA biopsy is also recommended for PET avid nodules. 2.No f/u imaging is recommended for ITN's not meeting the above criteria. 3.For multiple thyroid nodules, the above recommendations for solitary ITN are to be applied to the largest nodule. 4.No US or f/u recommended for ITN's without high risk features in patients with limited life expectancy or significant co-morbidities, unless clinically warranted. 5.These recommendations do not apply to patients w/ increased risk for thyroid cancer or patients with symptomatic thyroid disease. Recommendations for f/u of Incidental Thyroid Nodules (ITN) found on CT, MR, NM and Extrathyroidal US are based upon the ACR white paper and Hernandez 3-tiered system for managing ITN's: J Am [facility]iology 2015 Feb;12(2): 143-50 Electronically signed by: Robin Berg MD 05/29/2017 4:57 PM CDT
== END | disposition home or self-care (01) ==
LOC: US 14:18
PROVIDERS: ATTEND Family Medicine
DX: E04.1 Nontoxic single thyroid nodule (principal)

== ENCOUNTER → 2017-07-20 | Outpatient (CLI) | payer MEDICARE, OTHER ==
--- NOTE | 2017-07-20 11:54 | US ---
EXAM DESCRIPTION: Venous,Lower Extremity RT CLINICAL HISTORY: 71 years, Male, R/O DVT COMPARISON: FINDINGS: The right common femoral, superficial femoral, deep femoral, greater saphenous, popliteal, posterior tibial and peroneal veins identified. Appropriate flow compressibility and augmentation. IMPRESSION: No evidence deep venous thrombosis right lower extremity. Electronically signed by: Flex Alcazar MD 07/20/2017 11:52 AM CDT
--- NOTE | 2017-07-21 12:29 | US ---
EXAM DESCRIPTION: Venous,Lower Extremity LT: ULTRASOUND. CLINICAL HISTORY: R/O DVT COMPARISON: None Available. TECHNIQUE: Two -dimensional and doppler sonographic evaluation of the deep venous system of the left lower extremity. FINDINGS: Echogenic material is noted in the left common femoral vein. The vein is not completely compressible with the transducer. Decreased color flow and decreased venous waveforms. Doppler evaluation remainder of the extremity shows normal color flow and normal phasicity and augmentation of the left femoral vein, popliteal vein, peroneal, and posterior tibial vein. These deep veins showed normal occlusion with transducer pressure. Two-dimensional survey showed no echogenic thrombus within these veins. IMPRESSION: 1. Duplex ultrasound evaluation of the left lower extremity deep venous system showing partial thrombus in the left common femoral vein. No evidence of thrombosis or embolism in the more distal deep venous system of the left lower extremity. Electronically signed by: Robin Berg MD 07/21/2017 12:28 PM CDT
== END | disposition home or self-care (01) ==
LOC: US 10:25
PROVIDERS: ATTEND Neurological Surgery
DX: I82.4Y2 Acute embolism and thrombosis of unspecified deep veins of left proximal lower extremity (principal); M79.605 Pain in left leg; M79.604 Pain in right leg

== ENCOUNTER → 2018-01-12 | Outpatient (CLI) | payer MEDICARE, OTHER | LOC: GMAH 10:34 | PROVIDERS: ATTEND Family Medicine | DX: N39.0 Urinary tract infection, site not specified (principal) ==

== ENCOUNTER 2018-06-01 21:43 | Emergency (ER) | payer MEDICARE, OTHER ==
[2018-06-01 22:05] VITALS: TEMP 97.7
--- NOTE | 2018-06-01 22:32 | ED.PDOC ---
History of Present Illness - General Chief Complaint: Problem Stated Complaint: odor in urine Time Seen by Provider: 06/01/18 22:29 Source: patient Exam Limitations: no limitations - History of Present Illness Initial Comments: Patient presents after having collected a foul smelling cloudy urine at home. He performs self catheterization because he had lumbar stenosis that decreased his ability to urinate at will. He has had three UTIs this past year and he wanted to prevent it from becoming so bad that he would have to be hospitalized. Denies fever or back pain. No other complaints. Timing/Duration: 4-6 hours Severity: moderate Improving Factors: nothing Worsening Factors: nothing Associated Symptoms: denies symptoms Allergies/Adverse Reactions: Allergies No Known Drug Allergy Allergy (Verified 02/10/17 14:31) Home Medications: Ambulatory Orders Atenolol & Chlorthalidone [Atenolol/Chlorthalidone 50-25 mg] 1 tab PO DAILY Lovastatin 20 mg PO BEDTIME 02/10/17 Potassium Chloride [Potassium Chloride ER] 60 meq PO DAILY 02/10/17 Apixaban [Eliquis] 5 mg PO BID #60 02/13/17 Ciprofloxacin [Cipro] 500 mg PO BID #28 tab 06/01/18 Review of Systems - Review of Systems Constitutional: States: no symptoms reported EENTM: States: no symptoms reported Respiratory: States: no symptoms reported Cardiology: States: no symptoms reported Gastrointestinal/Abdominal: States: no symptoms reported Genitourinary: States: see HPI Musculoskeletal: States: no symptoms reported Skin: States: no symptoms reported Neurological: States: no symptoms reported Endocrine: States: no symptoms reported Hematologic/Lymphatic: States: no symptoms reported Past Medical History (General) - Patient Medical History Hx Seizures: No Hx Stroke: No Hx Asthma: No Hx of COPD: No Hx Congestive Heart Failure: No Hx Pacemaker: No Hx Hypertension: Yes Hx Diabetes: No Hx MRSA: No Surgical History: no surgical history - Vaccination History Hx Influenza Vaccination: Yes Hx Pneumococcal Vaccination: Yes - Social History Hx Alcohol Use: No Hx Substance Use: No Hx Physical Abuse: No Hx Emotional Abuse: No - Triage Comment ED Triage Comment: Cloudy,odorous urine. Pt states staight caths self and tries to catch infections early Family Medical History - Family History Father Living Status: Hx Family Congestive Heart Failure: Yes Hx Family Hypertension: Yes Hx Family;Other: kidney failur Mother Living Status: Hx Family;Other: hip fx Physical Exam - Physical Exam General Appearance: Alert Respiratory: chest non-tender, lungs clear, normal breath sounds Cardiovascular/Chest: normal peripheral pulses, regular rate, rhythm, no edema Gastrointestinal/Abdominal: normal bowel sounds, non tender, soft Back Exam: normal inspection, no CVA tenderness Skin Exam: normal color Lymphatic: no adenopathy Progress - Progress Progress: 06/01/18 23:34 UA showed large blood and wbc. Patient has previously responded well to fluoroquinolones. Gave ciprofloxacin 500 mg po x one in the E.D. and then 14 day course due to wbc being 12.9. Patient was afebrile but could possible be developing systemic disease. Gave E.R. warnings. Care instructions given. E.D. warnings given. Questions were elicited and answered. Patient voiced understanding and agreement with the plan. Laboratory Tests 06/01/18 06/01/18 06/01/18 21:50 22:39 22:39 WBC 12.9 H RBC 5.27 Hgb 15.7 Hct 47.1 MCV 89.5 MCH 29.7 MCHC 33.4 RDW 13.4 Plt Count 181 MPV 9.0 Absolute Neuts (auto) 10.30 H Absolute Lymphs (auto) 1.60 Absolute Monos (auto) 0.90 H Absolute Eos (auto) 0.10 Absolute Basos (auto) 0.00 Neutrophils % 80.3 H Lymphocytes % 12.1 L Monocytes % 6.8 Eosinophils % 0.5 L Basophils % 0.3 Sodium 135 Potassium 3.5 L Chloride 100 L Carbon Dioxide 26 Anion Gap 12.5 BUN 17 Creatinine 1.16 BUN/Creatinine Ratio 14.7 Random Glucose 107 H Serum Osmolality 272.1 L Calcium 9.0 Urine Color Yellow Urine Appearance Turbid Urine pH 6.0 Ur Specific [place] >= 1.030 Urine Protein >=300 H Urine Glucose (UA) Negative Urine Ketones Negative Urine Blood Large H Urine Nitrite Negative Urine Bilirubin Negative Urine Urobilinogen 0.2 Ur Leukocyte Esterase Small H Urine RBC 10-20 H Urine WBC 20-30 H Ur Epithelial Cells 3-5 Urine Bacteria 1+ Departure - Departure Clinical Impression: Urinary tract infection Disposition: Discharge to Home or Self Care Condition: Good Departure Forms: ED Discharge - Pt. Copy, Patient Portal Self Enrollment Diet: resume usual diet Activity: increase activity as tolerated Referrals: Monico Magallanes MD [Primary Care Provider] - 1-2 Weeks Prescriptions: Ciprofloxacin [Cipro] 500 mg PO BID #28 tab Home Medications: Ambulatory Orders Atenolol & Chlorthalidone [Atenolol/Chlorthalidone 50-25 mg] 1 tab PO DAILY Lovastatin 20 mg PO BEDTIME 02/10/17 Potassium Chloride [Potassium Chloride ER] 60 meq PO DAILY 02/10/17 Apixaban [Eliquis] 5 mg PO BID #60 02/13/17 Ciprofloxacin [Cipro] 500 mg PO BID #28 tab 06/01/18 Additional Instructions: Return to the E.R. for temperature above 100.4. Take medication as prescribed. See your regular doctor within the next week.
[2018-06-01] MEDS ORDERED: CIPROFLOXACIN 500 MG TAB PO ONE (23:33)
[2018-06-02 00:09] VITALS: BP 166/88; O2SAT 99
== END 2018-06-01 23:40 | disposition home or self-care (01) ==
LOC: ER 21:43
DX: N39.0 Urinary tract infection, site not specified (principal); M48.061 Spinal stenosis, lumbar region without neurogenic claudication; I10 Essential (primary) hypertension

== ENCOUNTER → 2019-05-23 | Outpatient (CLI) | payer MEDICARE, OTHER | LOC: GMA MATASK 10:36 | PROVIDERS: ATTEND Family Medicine | DX: I10 Essential (primary) hypertension (principal); Z12.5 Encounter for screening for malignant neoplasm of prostate; E78.2 Mixed hyperlipidemia | CPT/HCPCS: 84443; 84550; G0103 ==

== ENCOUNTER → 2020-06-22 | Outpatient (CLI) | payer MEDICARE, OTHER | LOC: GMAM 11:11 | PROVIDERS: ATTEND Family Medicine | DX: N39.0 Urinary tract infection, site not specified (principal) ==

== ENCOUNTER → 2020-09-11 | Outpatient (CLI) | payer MEDICARE, OTHER | LOC: GMA MATASK 15:07 | PROVIDERS: ATTEND Family Medicine | DX: Z12.5 Encounter for screening for malignant neoplasm of prostate (principal); I10 Essential (primary) hypertension | CPT/HCPCS: 84443; 84550; G0103 ==

== ENCOUNTER → 2020-10-12 | Outpatient (CLI) | payer MEDICARE, OTHER | LOC: GMA CAST 12:16 | PROVIDERS: ATTEND Family Medicine Sports Medicine | DX: N39.0 Urinary tract infection, site not specified (principal) ==